=== PATIENT | male | born 1955 | race Caucasian/White ===

== ENCOUNTER 2017-05-12 06:32 | Day surgery (SDC) | payer OTHER ==
[2017-05-12] MEDS ORDERED: Lactated Ringers 1,000 ML IV SCH (06:45)
[2017-05-12] MEDS ORDERED: Midazolam 1 MG/ML 2 ML SDV ONE (07:28)
[2017-05-12] MEDS ORDERED: fentaNYL 100 MCG/2 ML SDV ONE (07:28)
[2017-05-12] MEDS ORDERED: Propofol 200 MG/20 ML SDV ONE (07:28)
[2017-05-12 09:19] VITALS: BP 145/103
--- NOTE | 2017-05-12 10:57 | OR ---
DATE OF PROCEDURE: 05/12/2017 PREOPERATIVE DIAGNOSIS: History of colon cancer. POSTOPERATIVE DIAGNOSES: 1. Small right colon polyp. 2. History of colon cancer. PROCEDURE PERFORMED: Colonoscopy to the cecum with biopsy resection of small right colon polyp. SURGEON: Lion Carrion MD. ANESTHESIA: IV anesthesia with monitored anesthesia care. INDICATION: This 62-year-old white male is here for a colonoscopy. He has a history of a low anterior resection for a polyp with cancer within it several years ago. A year ago, he had a colonoscopy with snare cautery polypectomy of a sessile polyp in the transverse colon, which was marked with Kiana ink. He is here for followup colonoscopy. I counseled him for the procedure, including risks and alternatives, and he gave his informed consent to proceed. DESCRIPTION OF PROCEDURE: The patient was placed in the left lateral decubitus position. IV anesthesia was administered by the Anesthesia Service. Time-out was held. A rectal exam was performed, which was unremarkable. The flexible video Olympus colonoscope was introduced through his anus, up his rectum, and out his colon all way to the cecum. Once the cecum was reached, the scope was slowly withdrawn, examining the mucosa throughout. We saw a couple of small right colon diverticula. There was a small right colon polyp, which we removed with the biopsy forceps. The scope was withdrawn further, and no additional abnormalities were noted. The anastomosis looked well with no local recurrence. No persistence of his transverse colon polyp. The scope was retroflexed in the rectum with the distal rectum appearing unremarkable. The scope was straightened and removed. He tolerated the procedure well. Lion Carrion MD /[id number] MTDD
== END 2017-05-12 09:26 | disposition home or self-care (01) ==
LOC: JP.SDS 06:32
PROVIDERS: ATTEND Surgery
DX: Z12.11 Encounter for screening for malignant neoplasm of colon (principal); D12.2 Benign neoplasm of ascending colon; K57.30 Diverticulosis of large intestine without perforation or abscess without bleeding; Z85.038 Personal history of other malignant neoplasm of large intestine; Z88.0 Allergy status to penicillin
CPT/HCPCS: 45380; 88305; J2250; J2704; J3010; J7120

== ENCOUNTER 2019-05-10 07:02 | Day surgery (SDC) | payer OTHER ==
[~2019-05-10 07:02] MED LIST: Midazolam 1 MG/ML 2 ML SDV ONE; Propofol 200 MG/20 ML SDV ONE; fentaNYL 100 MCG/2 ML SDV ONE
[2019-05-10] MEDS ORDERED: Lactated Ringers 1,000 ML IV SCH (07:30)
[2019-05-10 10:11] VITALS: BP 151/89; PULSE 59
--- NOTE | 2019-05-10 10:39 | OR ---
DATE OF PROCEDURE: 05/10/2019 SURGEON: Lion Carrion MD PREOPERATIVE DIAGNOSIS: History of colon cancer. POSTOPERATIVE DIAGNOSIS: Diverticulosis. PROCEDURE: Colonoscopy to the cecum. ANESTHESIA: IV anesthesia with monitored anesthesia care. INDICATION: This 64-year-old white male is here for a colonoscopy. He has a history of colon cancer having undergone a sigmoid resection in 2009. He has had no evidence of recurrence. He says his last colonoscopic exam was done 2 years ago. I counseled him for the procedure, including risks and alternatives, and he gave his informed consent to proceed. DESCRIPTION OF PROCEDURE: The patient was placed in the left lateral decubitus position. IV anesthesia was administered by the Anesthesia Service. Time-out was held. A rectal exam was performed, which was unremarkable. The flexible video Olympus colonoscope was introduced through his anus, up his rectum, and out his colon all the way to the cecum. En route, we saw a few right-sided diverticula. There was no bleeding or inflammation associated with them. Once the cecum was reached, the scope was slowly withdrawn examining the mucosa throughout. No mucosal abnormalities were noted. The anastomosis looked well. The scope was retroflexed in the rectum with the distal rectum appearing unremarkable. The scope was straightened and removed. He tolerated the procedure well. Lion Carrion MD /[id number] MTDD
== END 2019-05-10 10:26 | disposition home or self-care (01) ==
LOC: JP.SDS 07:02
PROVIDERS: ATTEND Surgery
DX: Z12.11 Encounter for screening for malignant neoplasm of colon (principal); K57.30 Diverticulosis of large intestine without perforation or abscess without bleeding; Z88.0 Allergy status to penicillin; Z90.49 Acquired absence of other specified parts of digestive tract; Z85.038 Personal history of other malignant neoplasm of large intestine
CPT/HCPCS: 45378; J2250; J2704; J3010; J7120

== ENCOUNTER 2019-10-21 07:55 | Emergency (ER) | payer OTHER ==
--- NOTE | 2019-10-21 08:17 | EDM.PDOC ---
ED HPI GENERAL MEDICAL PROBLEM - General Chief Complaint: Neuro Symptoms/Deficits Stated Complaint: R SIDE WEAKNESS Time Seen by Provider: 10/21/19 08:00 Source of Information: Reports: Patient History Limitations: Reports: No Limitations - History of Present Illness INITIAL COMMENTS - FREE TEXT/NARRATIVE: 64-year-old male arrives with 12 hours of vague mild right-sided weakness in the arm and leg. It is more of a feeling of lack of coordination, when he walks he feels like he is pulling along his right leg and moving his right arm needs a little more concentration. He denies any weakness. No paresthesias, no headache, no visual changes or facial weakness. He has no dysarthria or expressive aphasia. The symptoms started after a couple glasses of wine so he thought it would just "go away", but this morning it is still persistent so he needs it checked. He had a physical exam in March which went well. His blood pressure is usually not a problem, this morning it is elevated on arrival at 188/110. No chest pain, shortness of breath, nausea or vomiting. - Related Data Allergies Allergy/AdvReac Type Severity Reaction Status Date / Time Penicillins Allergy Hives Verified 05/10/19 09:50 Home Meds: Home Meds Tamsulosin HCl [Flomax] 0.4 mg PO DAILY 05/12/13 [History] Past Medical History HEENT History: Reports: Impaired Vision Other HEENT History: reading glasses Cardiovascular History: Reports: Afib Gastrointestinal History: Reports: Colon Polyp Genitourinary History: Reports: Prostate Disorder Oncologic (Cancer) History: Reports: Colon - Infectious Disease History Infectious Disease History: Reports: Chicken Pox, Measles, Mumps - Past Surgical History HEENT Surgical History: Reports: Oral Surgery GI Surgical History: Reports: Colonoscopy, Other (See Below) Other GI Surgeries/Procedures: hemicolectomy Male Surgical History: Reports: None Oncologic Surgical History: Reports: None Social & Family History - Family History Family Medical History: Noncontributory - Tobacco Use Smoking Status *Q: Never Smoker - Caffeine Use Caffeine Use: Reports: Coffee - Recreational Drug Use Recreational Drug Use: No ED ROS GENERAL - Review of Systems Review Of Systems: See Below Constitutional: Denies: Fever, Chills HEENT: Reports: No Symptoms Respiratory: Reports: No Symptoms Cardiovascular: Reports: No Symptoms GI/Abdominal: Reports: No Symptoms : Reports: No Symptoms Musculoskeletal: Reports: No Symptoms Psychiatric: Reports: No Symptoms ED EXAM, NEURO - Physical Exam Exam: See Below Exam Limited By: No Limitations General Appearance: Alert, No Apparent Distress Eye Exam: Bilateral Eye: EOMI Head Exam: Atraumatic Respiratory/Chest: No Respiratory Distress, Lungs Clear Cardiovascular: Regular Rate, Rhythm, Extra Beats Neurological: Alert, Oriented x 3, Other (The only neurologic deficits that can be repeated with exam are slight findings of lack of coordination of the upper and lower extremity on the right such as hand flapping and [id number] coordination. No deficits of sensation or strength) Extremities: No: Pedal Edema Psychiatric: Normal Affect, Normal Mood Skin Exam: Warm, Dry Course - Vital Signs Last Recorded V/S: Last Vital Signs Temp 97 F 10/21/19 08:18 Pulse 65 10/21/19 11:59 Resp 12 10/21/19 11:59 BP 178/98 H 10/21/19 11:59 Pulse Ox 98 10/21/19 11:59 - Orders/Labs/Meds Orders: Active Orders 24 hr Category Date Time Status Gadoteridol [ProHance] Med 10/21/19 09:30 Active 20 ml IV . DIRECTED Medication Orders Gadoteridol (Prohance) 20 ml IV . DIRECTED KRISTINE Stop: 10/21/19 16:00 Last Admin: 10/21/19 09:45 Dose: 20 ml Labs: Laboratory Tests 10/21/19 10/21/19 Range/Units 08:15 08:15 WBC 6.5 (4.5-11.0) K/uL RBC 4.87 (4.30-5.90) M/uL Hgb 14.4 (12.0-15.0) g/dL Hct 43.2 (40.0-54.0) % MCV 89 (80-98) fL MCH 30 (27-31) pg MCHC 33 (32-36) % Plt Count 220 (150-400) K/uL Neut % (Auto) 58 (36-66) % Lymph % (Auto) 27 (24-44) % Fleming % (Auto) 9 H (2-6) % Eos % (Auto) 5 H (2-4) % Baso % (Auto) 1 (0-1) % Sodium 141 (140-148) mmol/L Potassium 3.8 (3.6-5.2) mmol/L Chloride 105 (100-108) mmol/L Carbon Dioxide 26 (21-32) mmol/L Anion Gap 10.0 (5.0-14.0) mmol/L BUN 17 (7-18) mg/dL Creatinine 1.1 (0.8-1.3) mg/dL Est Cr Clr Drug Dosing 81.10 mL/min Estimated GFR (MDRD) > 60 (>60) Glucose 100 (74-106) mg/dL Calcium 8.4 L (8.5-10.1) mg/dL Total Bilirubin 0.5 (0.2-1.0) mg/dL AST 21 (15-37) U/L ALT 28 (12-78) U/L Alkaline Phosphatase 69 (46-116) U/L Total Protein 7.1 (6.4-8.2) g/dL Albumin 3.6 (3.4-5.0) g/dL Globulin 3.5 (2.3-3.5) g/dL Albumin/Globulin Ratio 1.0 L (1.2-2.2) Meds: Medications Generic Name Dose Route Start Last Admin Trade Name Freq PRN Reason Stop Dose Admin Gadoteridol 20 ml 10/21/19 09:30 10/21/19 09:45 Prohance IV 10/21/19 16:00 20 ml . DIRECTED KRISTINE Administration Discontinued Medications Generic Name Dose Route Start Last Admin Trade Name Freq PRN Reason Stop Dose Admin Apixaban 2.5 mg 10/21/19 10:58 10/21/19 11:16 Eliquis PO 10/21/19 10:59 Not Given ONETIME ONE Aspirin Confirm 10/21/19 11:12 10/21/19 11:48 Ecotrin Administered 10/21/19 11:13 Not Given Dose 325 mg .ROUTE .STK-MED ONE Aspirin 325 mg 10/21/19 11:16 10/21/19 11:18 Ecotrin PO 10/21/19 11:17 325 mg ONETIME ONE Administration - Re-Assessments/Exams Free Text/Narrative Re-Assessment/Exam: 10/21/19 09:05 CBC and CMP were obtained which were normal, after discussing the symptoms with radiology an MRI of the brain was ordered without contrast. Patient's blood pressure slowly normalized 10/21/19 11:58 Labs were very reassuring, however the MRI showed a small acute or subacute area of infarction in the left parietal lobe. After consultation with neurology , the patient was given a full dose aspirin and will be sent for admission to [facility] for further evaluation by neurology. Acceptance was by Dr. Magnus Wing at 11:55 AM. MRI was sent to be sent for further review. Patient remained stable throughout. 10/21/19 12:23 Patient was transferred to [facility] by private car Departure - Departure Time of Disposition: 12:15 Disposition: DC/Tfer to Other 70 Clinical Impression: Ischemic cerebrovascular accident (CVA) - Discharge Information Instructions: Ischemic Stroke, [id number] Referrals: PCP,None [Primary Care Provider] - Forms: ED Department Discharge Care Plan Goals: Go directly to [facility] for direct admission, expect further work-up and treatment for your recent small ischemic stroke. Sepsis Event Note - Focused Exam Vital Signs: Vital Signs Temp Pulse Resp BP Pulse Ox 10/21/19 11:59 65 12 178/98 H 98 10/21/19 10:22 70 12 180/100 H 98 10/21/19 08:48 62 12 184/104 H 97 10/21/19 08:19 64 12 187/100 H 98 10/21/19 08:18 97 F 62 12 188/115 H 98 Date Exam was Performed: 10/21/19 Time Exam was Performed: 12:23 - My Orders Last 24 Hours: My Active Orders 10/21/19 09:30 Gadoteridol [ProHance] 20 ml IV . DIRECTED - Assessment/Plan Last 24 Hours: My Active Orders 10/21/19 09:30 Gadoteridol [ProHance] 20 ml IV . DIRECTED
[2019-10-21] MEDS ORDERED: Gadoteridol 279.3 MG/ML 20 ML SDV IV SCH (09:30)
--- NOTE | 2019-10-21 10:35 | MR ---
Brain w wo Cont CLINICAL HISTORY: Right arm and leg uncoordinated COMPARISON: None TECHNIQUE: Multiple pulse sequences were obtained through the brain in the axial, coronal, and sagittal planes both pre-and post IV contrast infusion gadolinium-based contrast. All images were obtained on a 1.5 Nereida unit. FINDINGS: There is a focus of restricted diffusion in the high left the parietal lobe There is no focal mass lesion. There is no hemorrhage, or edema. The basal cisterns and sulci over the convexities are normal. There is a large CSF signal defect in the posterior fossa at the midline. 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 A large arachnoid cyst or megacisternal magna are also considerations. The ventricles are moderately enlarged. Postcontrast images show no enhancing lesions. There are changes of previous right-sided mastoiditis. IMPRESSION: Small acute or subacute ischemic infarct in the left parietal lobe Ventriculomegaly with a large CSF collection in the posterior fossa. 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 There does appear to be relatively normal amount of vermian tissue. A large midline arachnoid cyst is also a consideration as well as megacisterna magna. Hydrocephalus may be due to aqueductal stenosis
[2019-10-21] MEDS ORDERED: Apixaban 2.5 MG Tab PO ONE (10:58)
[2019-10-21] MEDS ORDERED: Aspirin 325 MG Tab.EC ONE (11:12)
[2019-10-21] MEDS ORDERED: Aspirin 325 MG Tab.EC PO ONE (11:16)
[2019-10-21 11:59] VITALS: BP 178/98; PULSE 65
== END 2019-10-21 12:20 | disposition other institution (70) ==
LOC: JP.ED 07:55
DX: I63.9 Cerebral infarction, unspecified (principal); I48.91 Unspecified atrial fibrillation; Z88.0 Allergy status to penicillin; Z79.899 Other long term (current) drug therapy
CPT/HCPCS: 36415; 70553; 80053; 85025; 99285; A9270; A9579

== ENCOUNTER 2023-01-31 05:41 | Day surgery (SDC) | payer OTHER ==
[2023-01-31] MEDS ORDERED: Dextrose 5%-Lactated Ringers 1,000 ML IV SCH (06:15)
[2023-01-31] MEDS ORDERED: Lidocaine 1% with EPINEPHrine 1:100,000 50 ML MDV ONE (06:39)
[2023-01-31] MEDS ORDERED: Bupivacaine 0.5% 50 ML MDV ONE (06:39)
[2023-01-31] MEDS ORDERED: Propofol 200 MG/20 ML SDV ONE (07:04)
[2023-01-31] MEDS ORDERED: Midazolam 1 MG/ML 2 ML SDV ONE (07:05)
[2023-01-31] MEDS ORDERED: fentaNYL 100 MCG/2 ML SDV ONE (07:05)
[2023-01-31] MEDS ORDERED: ceFAZolin 2 GM in Premix Bag 1 BAG IV ONE (07:15)
[2023-01-31 08:40] VITALS: PULSE 55
[2023-01-31 08:47] VITALS: BP 125/67
== END 2023-01-31 08:56 | disposition home or self-care (01) ==
LOC: JP.SDS 05:41
PROVIDERS: ATTEND Surgery
DX: Z45.09 Encounter for adjustment and management of other cardiac device (principal); I10 Essential (primary) hypertension; I48.91 Unspecified atrial fibrillation; Z86.73 Personal history of transient ischemic attack (TIA), and cerebral infarction without residual deficits; Z85.038 Personal history of other malignant neoplasm of large intestine; Z88.0 Allergy status to penicillin; Z88.8 Allergy status to other drugs, medicaments and biological substances
CPT/HCPCS: 33286; J0690; J2250; J2704; J3010; J3490; J7121

== ENCOUNTER 2023-07-21 06:24 | Day surgery (SDC) | payer OTHER ==
[2023-07-21] MEDS: Lactated Ringers 1,000 ML IV SCH (07:04)
[2023-07-21] MEDS ORDERED: fentaNYL 100 MCG/2 ML SDV ONE (07:13)
[2023-07-21] MEDS ORDERED: Propofol 200 MG/20 ML SDV ONE (07:13)
[2023-07-21 09:23] VITALS: BP 136/83; PULSE 56
== END 2023-07-21 09:32 | disposition home or self-care (01) ==
LOC: JP.SDS 06:24
PROVIDERS: ATTEND Student in an Organized Health Care Education/Training Program
DX: Z12.11 Encounter for screening for malignant neoplasm of colon (principal); K57.30 Diverticulosis of large intestine without perforation or abscess without bleeding; I10 Essential (primary) hypertension; E78.5 Hyperlipidemia, unspecified; Z85.038 Personal history of other malignant neoplasm of large intestine
CPT/HCPCS: 93005; G0105; J2704; J3010; J7120